=== PATIENT | male | born 1985 | race Caucasian/White ===

== ENCOUNTER → 2021-12-26 | Outpatient (CLI) | payer OTHER ==
--- NOTE | 2021-12-26 09:32 | CT ---
EXAMINATION TYPE: CT sinus wo con DATE OF EXAM: 12/26/2021 COMPARISON: NONE HISTORY: pre surgical, chronic sinusitis CT DLP: 630 mGycm. Automated Exposure Control for Dose Reduction was Utilized. TECHNIQUE: CT scan of the sinuses is performed without contrast, axial images are obtained, coronal r eformatted images are also reviewed. FINDINGS: Moderate focal anterior mucosal thickening in the left sphenoid sinus. Focal patchy mild to moderate opacification and mucosal thickening in the left-sided ethmoid sinuses . There is hypoplast ic right frontal sinus. Nasal septum is deviated to right of midline anteriorly. There is more promin ent left-sided deviation noted posteriorly. The ostiomeatal complex is patent bilaterally on coronal image 22 there is left-sided narrowing due to antral mucosal thickening. Visualized portion of mastoid air cells show no abnormal opacification. The globes are intact bilate rally. Visualized brain parenchyma is unremarkable. IMPRESSION: As above.
== END | disposition home or self-care (01) ==
LOC: RADCTMAIN 08:03
PROVIDERS: ATTEND Otolaryngology
DX: Z01.818 Encounter for other preprocedural examination (principal); J34.89 Other specified disorders of nose and nasal sinuses; J34.2 Deviated nasal septum
CPT/HCPCS: 70486